=== PATIENT | male | born 1995 | race Caucasian/White ===

== ENCOUNTER 2019-01-27 17:56 | Emergency (ER) | payer OTHER ==
[~2019-01-27] VITALS: Ht 185.4 cm; Wt 127.0 kg
[2019-01-27] MEDS ORDERED: WELLBUTRIN SR150 MG PO (18:08)
[2019-01-27 18:14] LABS: URINE BILIRUBIN NEGATIVE (Negative); URINE BLOOD 2+ (Negative); URINE CLARITY CLEAR; URINE COLOR YELLOW; URINE GLUCOSE-RANDOM* NEGATIVE (Negative); URINE KETONES NEGATIVE (Negative); URINE LEUKOCYTES-REFLEX NEGATIVE (Negative); URINE NITRITE-REFLEX NEGATIVE (Negative); URINE PROTEIN (DIPSTICK) NEGATIVE (Negative); URINE SPECIFIC GRAVITY 1.015 (1.005-1.035); URINE UROBILINOGEN 0.2 E.U./dl (0.2-1.0)
[2019-01-27 18:23] LABS: BACTERIA-REFLEX None Seen /HPF (None Seen); CASTS None Seen /LPF (None Seen); CRYSTALS None Seen /LPF (None Seen); SQUAMOUS 0-3 Few /LPF (0-3); URINE RBC 3-10 Few /HPF (0-2); URINE WBC-REFLEX None Seen /HPF (0-5)
[2019-01-27 19:05] VITALS: BP 135/81
== END 2019-01-27 19:05 | disposition home or self-care (01) ==
LOC: ER 17:56
PROVIDERS: Nurse Practitioner Family
DX: R30.0 Dysuria (principal); R31.9 Hematuria, unspecified; Z91.010 Allergy to peanuts